=== PATIENT | female | born 1970 | race Caucasian/White ===

== ENCOUNTER 2016-12-16 09:14 | Emergency (ER) | payer BC, MEDICAID ==
[~2016-12-16] VITALS: Ht 157.5 cm; Wt 84.5 kg
[2016-12-16 09:19] VITALS: BP 105/66; PULSE 72; RESP 16; TEMP 97.8; O2SAT 98
[2016-12-16] MEDS ORDERED: PANTOPRAZOLE SODIUM 40 MG VIAL IV PUSH ONE (09:30)
[2016-12-16] MEDS ORDERED: XANA2TAB2 PO (09:31)
[2016-12-16] MEDS ORDERED: AUGM875T PO (09:31)
--- NOTE | 2016-12-16 09:39 | PD ---
HPI Chief Complaint: Abdominal Pain Time Seen by Provider: 09:21 Travel History International Travel<30 days: No Contact w/Intl Traveler<30days: No Traveled to known affect area: No History of Present Illness HPI 46-year-old female presents with central abdominal pain that has been going on since 45 minutes prior to arrival. She states that the pain comes in waves. She denies other associated symptoms. She states she is on day 7 of a 10 day antibiotic course for a bronchitis which she got through an urgent care when she was wheezing. She states all those symptoms have gone away. She states her last bowel movement was this morning and was normal. Quality is crampy. Severity is 6 out of 10. She denies specific migration the pain. She denies recurrent history of this. She denies specific modifying factors. PFSH Past Medical History Medical other: Yes (SLEEP PROBLEMS) Immunizations Current: Yes ?: Not Tubal Ligation: Yes Past Surgical History Hysterectomy: Yes Thoracic Surgery: Yes (CYST REMOVED FROM CHEST) Tonsillectomy: Yes Other Surgery: Yes (BREAST AUGMENTATION, NOSE FX REPAIR) Social History Alcohol Use: Yes (RARE) Tobacco Use: No (FORMER) Substance Use: No Allergies-Medications (Allergen,Severity, Reaction): Coded Allergies: Codeine (Verified Allergy, Intermediate, ITCHING SWELLING, 12/16/16) Reported Meds & Prescriptions Reported Meds & Active Scripts Active Reported Xanax (Alprazolam) 2 Mg Tab 2 Mg PO HS PRN Augmentin (Amoxicillin-Clavulanate) 875-125 mg Tab 875 Mg PO BID not for use in CrCl <30 ml/min. Review of Systems Except as stated in HPI: all other systems reviewed are Neg Physical Exam Narrative GENERAL: Well-nourished, well-developed patient. Well-appearing SKIN: Warm and dry. HEAD: Normocephalic and atraumatic. EYES: No injection or drainage. ENT: No nasal drainage noted. NECK: Supple, trachea midline. CARDIOVASCULAR: Regular rate and rhythm RESPIRATORY: Breath sounds equal bilaterally. No accessory muscle use. GASTROINTESTINAL: Abdomen soft, very mild tenderness with deep palpation in periumbilical area, nondistended. NEUROLOGICAL: Awake and alert. Motor and sensory grossly within normal limits. Normal speech. Data Data Last Documented VS Vital Signs Date Time Temp Pulse Resp B/P Pulse Ox O2 Delivery O2 Flow Rate FiO2 12/16/16 11:49 77 17 104/64 98 Room Air 12/16/16 09:19 97.8 Orders Complete Blood Count With Diff (12/16/16 09:27) Comprehensive Metabolic Panel (12/16/16 09:27) Urinalysis - C+S If Indicated (12/16/16 09:27) Lipase (12/16/16 09:27) Pantoprazole Inj (Protonix Inj) (12/16/16 09:30) Labs Laboratory Tests Test 12/16/16 12/16/16 09:40 11:05 White Blood Count 7.5 TH/MM3 Red Blood Count 4.63 MIL/MM3 Hemoglobin 14.1 GM/DL Hematocrit 42.6 % Mean Corpuscular Volume 92.0 FL Mean Corpuscular Hemoglobin 30.3 PG Mean Corpuscular Hemoglobin 33.0 % Concent Red Cell Distribution Width 13.3 % Platelet Count 250 TH/MM3 Mean Platelet Volume 8.6 FL Neutrophils (%) (Auto) % Lymphocytes (%) (Auto) % Monocytes (%) (Auto) % Eosinophils (%) (Auto) % Basophils (%) (Auto) % Neutrophils # (Auto) TH/MM3 Lymphocytes # (Auto) TH/MM3 Monocytes # (Auto) TH/MM3 Eosinophils # (Auto) TH/MM3 Basophils # (Auto) TH/MM3 CBC Comment AUTO DIFF Differential Total Cells 100 Counted Neutrophils % (Manual) 73 % Lymphocytes % 21 % Monocytes % 4 % Eosinophils % 2 % Neutrophils # (Manual) 5.5 TH/MM3 Differential Comment FINAL DIFF MANUAL Platelet Estimate NORMAL Platelet Morphology Comment NORMAL Sodium Level 138 MEQ/L Potassium Level 4.2 MEQ/L Chloride Level 100 MEQ/L Carbon Dioxide Level 25.7 MEQ/L Anion Gap 12 MEQ/L Blood Urea Nitrogen 20 MG/DL Creatinine 0.80 MG/DL Estimat Glomerular Filtration 77 ML/MIN Rate Random Glucose 86 MG/DL Calcium Level 8.4 MG/DL Total Bilirubin 0.5 MG/DL Aspartate Amino Transf 17 U/L (AST/SGOT) Alanine Aminotransferase 15 U/L (ALT/SGPT) Alkaline Phosphatase 68 U/L Total Protein 7.1 GM/DL Albumin 3.1 GM/DL Lipase 354 U/L Urine Collection Type CLEAN CATCH Urine Color YELLOW Urine Turbidity CLEAR Urine pH 6.0 Urine Specific [place] 1.023 Urine Protein NEG mg/dL Urine Glucose (UA) NEG mg/dL Urine Ketones NEG mg/dL Urine Occult Blood NEG Urine Nitrite NEG Urine Bilirubin NEG Urine Leukocyte Esterase NEG Urine WBC 0-2 /hpf Urine Squamous Epithelial > 8 /hpf Cells Urine Bacteria RARE /hpf Microscopic Urinalysis Comment CULT NOT INDICATED Urine Collection Time 11:05 [facility] Medical Decision Making Medical Screen Exam Complete: Yes Emergency Medical Condition: Yes Medical Record Reviewed: Yes (past history confirmed) Interpretation(s) CBC & BMP Diagram 12/16/16 09:40 ua no acute Differential Diagnosis Early Appendicitis, gastritis, gastroenteritis, ulcer... Narrative Course Will check blood work, urinalysis and dose with Protonix and reevaluate. Discussed with patient given her exam and early onset of symptoms if blood work is normal I would not recommend CAT scan as this is a ladder radiation and could miss early appendicitis. She agrees to hold on imaging and check blood work with reevaluation given current pain level labs without emergent findings, Patient denies any new complaints and states that they are feeling better. Patient happy with care, all questions answered. Patient knows that follow up is incumbent on them and to return to the emergency room immediately if new or worsening symptoms develop. Patient given strict return precautions, vitals reviewed and are normal, agrees to further workup as an outpatient. Diagnosis Primary Impression: Abdominal pain Qualified Code: R10.9 - Abdominal pain, unspecified location Patient Instructions: General Instructions Additional Instructions: tylenol as needed, set up a primary, return as needed Med/Other Pt SpecificInfo: No Change to Meds Disposition: 01 DISCHARGE HOME Condition: Stable Fina Saab MD Dec 16, 2016 09:39
[2016-12-16 09:57] LABS: HEMATOCRIT 42.6 % (35.0-46.0); HEMO FLAGS AUTO DIFF; MEAN CORPUSCULAR HEMOGLOBIN 30.3 PG (27.0-34.0); PLATELET COUNT 250 TH/MM3 (150-450); RED BLOOD COUNT 4.63 MIL/MM3 (4.00-5.30); RED CELL DISTRIBUTION WIDTH 13.3 % (11.6-17.2); WHITE BLOOD COUNT 7.5 TH/MM3 (4.0-11.0)
[2016-12-16 10:02] LABS: BLOOD UREA NITROGEN 20 MG/DL (7-18); GLOMERULAR FILTRATION RATE 77 ML/MIN (>89)
[2016-12-16 10:03] LABS: CHLORIDE 100 MEQ/L (98-107); POTASSIUM 4.2 MEQ/L (3.5-5.1); SODIUM (NA) 138 MEQ/L (136-145)
[2016-12-16 10:17] LABS: EOSINOPHILS 2 % (0-4); NEUTROPHIL # MANUAL DIFF 5.5 TH/MM3 (1.8-7.7); PLATELET ESTIMATE SMEAR NORMAL (NORMAL); PLATELET MORPHOLOGY NORMAL (NORMAL); POLYS (SEG NEUTROPHILS) 73 % (16-70); SCAN/DIFF FINAL DIFF MANUAL; WBC DIFF SAMPLE 100
[2016-12-16 10:38] LABS: ALKALINE PHOSPHATASE 68 U/L (45-117); ANION GAP 12 MEQ/L (5-15); BICARBONATE 25.7 MEQ/L (21.0-32.0); TOTAL BILIRUBIN ADULT 0.5 MG/DL (0.2-1.0)
[2016-12-16 10:51] LABS: ALT (GPT) 15 U/L (10-53); AST (GOT) 17 U/L (15-37)
[2016-12-16 11:21] LABS: BLOOD, URINE NEG (NEG); GLUCOSE,URINE NEG (NEG); KETONE, URINE NEG (NEG); NITRITE,URINE NEG (NEG)
[2016-12-16 11:28] LABS: METHOD OF COLLECTION CLEAN CATCH
[2016-12-16 11:29] LABS: BACTERIA, URINE RARE /hpf; COMMENT (UR) CULT NOT INDICATED; CULTURE IF INDICATED CULT NOT INDICATED; SQUAMOUS EPITHELIAL CELL URINE > 8 /hpf (0-5); URINE COLOR YELLOW (YELLW/STRAW); WBC, URINE 0-2 /hpf (0-5)
[2016-12-16 11:49] VITALS: BP 104/64; PULSE 77; RESP 17; O2SAT 98
== END 2016-12-16 12:15 | disposition home or self-care (01) ==
LOC: PHED 09:14
DX: R10.9 Unspecified abdominal pain (principal)
CPT/HCPCS: 80053; 81001; 83690; 85007; 85027; 99284

== ENCOUNTER 2016-12-31 14:06 | Emergency (ER) | payer MEDICAID ==
[~2016-12-31] VITALS: Ht 154.9 cm; Wt 85.5 kg
[~2016-12-31 14:06] MED LIST: AUGM875T PO; XANA2TAB2 PO
[2016-12-31 14:20] VITALS: BP 121/90; PULSE 90; RESP 16; TEMP 98.6; O2SAT 99
--- NOTE | 2016-12-31 15:44 | PD ---
HPI Chief Complaint: Cold / Flu Symptoms Time Seen by Provider: 15:41 Travel History International Travel<30 days: No Contact w/Intl Traveler<30days: No Traveled to known affect area: No History of Present Illness HPI Patient comes in complaining of cough, sore throat, and congestion ongoing for 2 -3 days. Patient states she was recently on antibiotics after being diagnosed with bronchitis seemed to alleviate her symptoms, however over the past 2-3 days starting to come back again. Patient denies doing anything for this. Denies anything making it better or worse. Denies any fevers, chest pain, shortness of breath, nausea, vomiting, headache, or abdominal pain. PFSH Past Medical History Medical History: Denies Significant Hx Immunizations Current: Yes Influenza Vaccination: No ?: Not Tubal Ligation: Yes Past Surgical History Hysterectomy: Yes Thoracic Surgery: Yes (CYST REMOVED FROM CHEST) Tonsillectomy: Yes Other Surgery: Yes (BREAST AUGMENTATION, NOSE FX REPAIR) Social History Alcohol Use: Yes (OCC) Tobacco Use: No (FORMER) Substance Use: No Allergies-Medications (Allergen,Severity, Reaction): Coded Allergies: Codeine (Verified Allergy, Intermediate, ITCHING SWELLING, 12/31/16) Reported Meds & Prescriptions Reported Meds & Active Scripts Active Reported Xanax (Alprazolam) 2 Mg Tab 2 Mg PO HS PRN Review of Systems Except as stated in HPI: all other systems reviewed are Neg Physical Exam Narrative GENERAL: Well-developed, overly nourished, in no acute distress, and non-ill appearing. SKIN: Warm and dry. HEAD: Atraumatic. Normocephalic. EYES: Pupils equal and round. EOMI. No scleral icterus. No injection or drainage. ENT: No nasal bleeding or discharge. Mucous membranes pink and moist. Tympanic membranes are pearly winter bilaterally. Posterior pharynx nonerythematous without exudate. Uvula is midline. Postnasal drip noted. No tenderness to facial sinuses to palpation. NECK: Trachea midline. No cervical lymphadenopathy. Supple. No nuclear rigidity. CARDIOVASCULAR: Regular rate and rhythm. No murmur appreciated. RESPIRATORY: No accessory muscle use. No respiratory distress. Clear to auscultation. Breath sounds equal bilaterally. MUSCULOSKELETAL: No obvious deformities. No clubbing. No cyanosis. No edema. Full range of motion. NEUROLOGICAL: Awake and alert. No obvious cranial nerve deficits. Motor grossly within normal limits. Normal speech. PSYCHIATRIC: Appropriate mood and affect; insight and judgment normal. Data Data Last Documented VS Vital Signs Date Time Temp Pulse Resp B/P Pulse Ox O2 Delivery O2 Flow Rate FiO2 12/31/16 15:32 18 99 Room Air 12/31/16 14:20 98.6 90 121/90 Orders Group A Rapid Strep Screen (12/31/16 15:41) Strep Culture (Group A) (12/31/16 15:45) MDM Medical Decision Making Medical Screen Exam Complete: Yes Emergency Medical Condition: Yes Differential Diagnosis Strep pharyngitis, viral pharyngitis, upper respiratory infection, allergic rhinitis, other Narrative Course Patient looks great, non-ill appearing. The patient is tolerating fluids and is well hydrated. Appears allergic sinusitis. No clinical evidence by history or evaluation to suspect infection, meningitis and/or sepsis. There was no evidence to suggest deep abscess or cavernous sinus involvement. I discussed with the patient, diagnosis, plan of care, medications and to follow up with the patients primary physician. The patient was instructed to return if the worsens in anyway, especially if not tolerating fluids, increased sinus pain or swelling, worsening headache, persistent fever, difficulty swallowing or breathing, or as needed. The patient agreed with plan. Patient in no obvious distress upon re-evaluation. All pertinent laboratory result(s) discussed with patient. Any questions/concerns in reference to patient diagnosis/condition discussed and clarified prior to patient's discharge. Reinforced sheer importance of close follow up with patient's primary physician or primary care clinic. Instructed patient to return to ED immediately, if symptoms return/worsen. Pt showed understanding of above instructions. Further instructions and recommendations were detailed in discharge paperwork. Pt ambulated without difficulty out of ED at discharge. Diagnosis Primary Impression: Allergic sinusitis Patient Instructions: Allergies (ED), General Instructions Additional Instructions: Follow-up with your primary care physician next week for reevaluation and possible allergy testing. Use [id number] allergy medication for symptomatic relief. Follow instructions on the packaging. Return to the emergency department if symptoms get worse. Disposition: 01 DISCHARGE HOME Condition: Stable Mahamed Knott Dec 31, 2016 15:44
== END 2016-12-31 17:01 | disposition home or self-care (01) ==
LOC: PHED 14:06 → PHEFT 17:01
DX: J30.9 Allergic rhinitis, unspecified (principal)
CPT/HCPCS: 87081; 87880; 99283

== ENCOUNTER 2017-03-03 10:17 | Emergency (ER) | payer MEDICAID ==
[~2017-03-03] VITALS: Ht 154.9 cm; Wt 83.0 kg
[~2017-03-03 10:17] MED LIST changes: -AUGM875T PO
[2017-03-03 10:26] VITALS: BP 115/75; PULSE 88; RESP 16; TEMP 98.6; O2SAT 98
[2017-03-03] MEDS ORDERED: AMOXICILLIN/CLAVULANATE K 875 MG TAB PO ONE (10:45)
[2017-03-03] MEDS ORDERED: DEXAMETHASONE SOD PHOS 20 MG/5 ML VIAL IM ONE (10:45)
[2017-03-03] MEDS ORDERED: AUGM875T PO (10:45)
--- NOTE | 2017-03-03 10:45 | PD ---
HPI Chief Complaint: ENT Complaint Time Seen by Provider: 10:39 Travel History International Travel<30 days: No Contact w/Intl Traveler<30days: No Traveled to known affect area: No History of Present Illness HPI Patient is a 46-year-old female who presents to emergency room with complaints of sore throat since yesterday. Patient reports that her boyfriend was sick earlier with similar symptoms, reports that she thinks that she may brought in sick from him. Patient Reports that her back of her throat feels sore, reports that it hurts for her to swallow. Denies fever/chills. Reports "I think that I have strep throat." PFSH Past Medical History Anxiety: Yes Immunizations Current: Yes Tetanus Vaccination: < 5 Years Influenza Vaccination: No ?: Not Tubal Ligation: Yes Past Surgical History Hysterectomy: Yes Thoracic Surgery: Yes (CYST REMOVED FROM CHEST) Tonsillectomy: Yes Other Surgery: Yes (BREAST AUGMENTATION, NOSE FX REPAIR) Social History Alcohol Use: Yes (occas. beer) Tobacco Use: No (FORMER quit 27 yrs ago smoked cigs) Substance Use: No Allergies-Medications (Allergen,Severity, Reaction): Coded Allergies: Codeine (Verified Allergy, Intermediate, ITCHING SWELLING, 03/03/17) Reported Meds & Prescriptions Reported Meds & Active Scripts Active Augmentin (Amoxicillin-Clavulanate) 875-125 mg Tab 875 Mg PO BID 10 Days not for use in CrCl <30 ml/min. Reported Xanax (Alprazolam) 2 Mg Tab 1.5 Mg PO HS PRN Review of Systems General / Constitutional: No: Fever, Chills Eyes: No: Visual changes HENT: Positive: Sore Throat, No: Headaches, Neck Pain, Dental Difficulties, Ear Discharge, Earache Cardiovascular: No: Chest Pain or Discomfort Respiratory: No: Shortness of Breath Gastrointestinal: No: Abdominal Pain Genitourinary: No: Dysuria Musculoskeletal: No: Pain Skin: No Rash Neurologic: No: Weakness Psychiatric: No: Depression Endocrine: No: Polydipsia Hematologic/Lymphatic: No: Easy Bruising Physical Exam Narrative GENERAL: Well-nourished, well-developed patient. SKIN: Focused skin assessment warm/dry. HEAD: Normocephalic. EYES: No scleral icterus. No injection or drainage. THROAT: patient with white pustules to bilateral posterior pharynx, b/l pharynx injected, no airway swelling, uvula midline with no swelling, patient talking in full sentences with no drooling on exam NECK: Supple, trachea midline. No JVD, positive for cervical lymphadenopathy. CARDIOVASCULAR: Regular rate and rhythm without murmurs, gallops, or rubs. RESPIRATORY: Breath sounds equal bilaterally. No accessory muscle use. GASTROINTESTINAL: Abdomen soft, non-tender, nondistended. MUSCULOSKELETAL: No cyanosis, or edema. BACK: Nontender without obvious deformity. No CVA tenderness. Data Data Last Documented VS Vital Signs Date Time Temp Pulse Resp B/P Pulse Ox O2 Delivery O2 Flow Rate FiO2 03/03/17 10:35 16 03/03/17 10:26 98.6 88 115/75 98 Orders Dexamethasone Inj (Decadron Inj) (03/03/17 10:45) Amoxicil-Clavulanate (Augmentin) (03/03/17 10:45) [facility] Medical Decision Making Medical Screen Exam Complete: Yes Emergency Medical Condition: Yes Interpretation(s) Vital Signs Date Time Temp Pulse Resp B/P Pulse Ox O2 Delivery O2 Flow Rate FiO2 03/03/17 10:35 16 03/03/17 10:26 98.6 88 16 115/75 98 Differential Diagnosis Pharyngitis, strep pharyngitis Narrative Course 46-year-old nontoxic female who presents to emergency room with complaints of sore throat since yesterday. Patient reports that her boyfriend was sick with similar symptoms, she concerned that she may have strep pharyngitis. Patient does have pustules to her bilateral posterior pharynx, patient talking in full sentences, patient with no airway swelling or edema. Vital signs are stable. Plan to treat for strep pharyngitis, signs and symptoms of when to return to emergency room was reviewed with patient. Diagnosis Primary Impression: Pharyngitis, acute Qualified Code: J02.9 - Acute pharyngitis, unspecified etiology Patient Instructions: General Instructions Additional Instructions: Please follow-up with your primary care doctor in 2-3 days Return to the emergency room symptoms progress or worsen Return to the emergency room as needed Take all antibiotics until completion as prescribed Med/Other Pt SpecificInfo: Prescription(s) given Scripts Amoxicillin-Clavulanate (Augmentin)875-125 mg [id number] Mg PO BID 10 Days Ref 0 not for use in CrCl <30 ml/min. Prov:Bernie Galvez DO 03/03/17 Disposition: 01 DISCHARGE HOME Condition: Stable Bernie Galvez DO Mar 03, 2017 10:45
== END 2017-03-03 10:59 | disposition home or self-care (01) ==
LOC: PHEFT 10:17
DX: J02.9 Acute pharyngitis, unspecified (principal)
CPT/HCPCS: 96372; 99282; J1100